=== PATIENT | female | born 1980 | race Hispanic/Latino ===

== ENCOUNTER 2021-10-04 14:12 | Emergency (ER) | payer MEDICAID, OTHER ==
[~2021-10-04] VITALS: Ht 157.5 cm; Wt 81.6 kg
[2021-10-04 14:47] LABS: BASOPHILS % (AUTO) 0.4 % (0.0-5.0); EOSINOPHILS % (AUTO) 2.2 % (0.0-8.0); LYMPHOCYTES % (AUTO) 29.1 % (21.0-51.0); MEAN CORPUSCULAR HEMOGLOBIN 23.9 pg (27.0-33.0); MEAN CORPUSCULAR HGB CONC 30.9 g/dL (32.0-36.0); MEAN CORPUSCULAR VOLUME 77.4 fL (79-99); MONOCYTES % (AUTO) 6.2 % (3.0-13.0); NEUTROPHILS % (AUTO) 61.5 % (40.0-77.0); PLATELET COUNT (AUTO) 217 K/uL (130-400); RED BLOOD CELL COUNT(AUTO) 2.97 MIL/uL (4.00-5.50); RED CELL DISTRIBUTION WIDTH 18.5 % (11.0-15.5); WHITE BLOOD COUNT (AUTO) 7.2 K/uL (4.8-10.8)
[2021-10-04 14:57] LABS: CREATININE 0.6 mg/dL (0.5-1.5); POTASSIUM 3.4 mmol/L (3.5-5.1)
[2021-10-04 15:02] LABS: ALBUMIN 3.5 g/dL (3.5-5.0); BILIRUBIN,TOTAL 0.3 mg/dL (0.2-1.0)
[2021-10-04 15:09] LABS: APPEARANCE,URINE Clear (CLEAR); BILIRUBIN,URINE Negative (NEGATIVE); COLOR,URINE Yellow (YELLOW); GLUCOSE, URINE (UA) Negative (NEGATIVE); KETONES,URINE Negative (NEGATIVE); LEUKOCYTE ESTERASE ,URINE Trace (NEGATIVE); NITRATE,URINE Positive (NEGATIVE); OCCULT BLOOD,URINE Large (NEGATIVE); PH,URINE 5.5 (5.0-8.0); PROTEIN,URINE Negative (NEGATIVE)
[2021-10-04 15:13] LABS: HCG,QUAL RESULT NEGATIVE (NEGATIVE)
[2021-10-04 15:19] LABS: BACTERIA,URINE Few /HPF (None Seen); RBC,URINE 26-50 /HPF (0-1); SQUAMOUS EPITHELIAL CELL,UR Few /HPF (0-2)
[2021-10-04] MEDS ORDERED: 0.9%NACL 1000ML 1,000 ML IV ONE (17:30)
[2021-10-04] MEDS ORDERED: LACT10SO9 PO (18:58)
[2021-10-04] MEDS ORDERED: MEDR10TA PO (18:58)
[2021-10-04] MEDS ORDERED: IRON-23 PO (18:58)
[2021-10-04 19:25] VITALS: BP 148/82
== END 2021-10-04 20:23 | disposition home or self-care (01) ==
LOC: EDH 14:12
DX: D25.9 Leiomyoma of uterus, unspecified (principal); O20.9 Hemorrhage in early pregnancy, unspecified; D64.9 Anemia, unspecified
CPT/HCPCS: 36415; 76856; 80053; 81001; 81025; 85025; 86850; 86900; 86901; 87077; 87088; 87186; 96360

== ENCOUNTER 2023-03-24 04:17 | Emergency (ER) | payer BC, MEDICAID ==
[~2023-03-24] VITALS: Ht 157.5 cm; Wt 80.7 kg
[~2023-03-24 04:17] MED LIST: IRON-23 PO; LACT10SO9 PO; MEDR10TA PO
[2023-03-24] MEDS ORDERED: ALPRAZOLAM 0.5 MG TABLET ONE (04:37)
[2023-03-24 04:39] LABS: BASOPHILS % (AUTO) 0.2 % (0.0-5.0); EOSINOPHILS % (AUTO) 1.9 % (0.0-8.0); HEMATOCRIT 39.5 % (36-48); LYMPHOCYTES % (AUTO) 31.1 % (21.0-51.0); MEAN CORPUSCULAR HEMOGLOBIN 30.5 pg (27.0-33.0); MEAN CORPUSCULAR HGB CONC 34.9 g/dL (32.0-36.0); MEAN CORPUSCULAR VOLUME 87.4 fL (79-99); MONOCYTES % (AUTO) 6.7 % (3.0-13.0); NEUTROPHILS % (AUTO) 59.7 % (40.0-77.0); PLATELET COUNT (AUTO) 191 K/uL (130-400); RED BLOOD CELL COUNT(AUTO) 4.52 MIL/uL (4.00-5.50); RED CELL DISTRIBUTION WIDTH 12.2 % (11.0-15.5); WHITE BLOOD COUNT (AUTO) 8.2 K/uL (4.8-10.8)
[2023-03-24 04:48] LABS: CREATININE 0.8 mg/dL (0.5-1.5)
[2023-03-24 04:55] LABS: ALBUMIN 4.3 g/dL (3.5-5.0); TOTAL PROTEIN, SERUM 7.8 g/dL (6.0-8.3)
[2023-03-24] MEDS ORDERED: LABETALOL 20MG VIAL IV ONE (05:00)
[2023-03-24] MEDS ORDERED: ONDANSETRON 4MG INJ IVP ONE (05:00)
[2023-03-24] MEDS ORDERED: ALPRAZOLAM 0.5 MG TABLET PO ONE (05:00)
[2023-03-24] MEDS ORDERED: POTASSIUM BICARB/CIT AC 25 MEQ TABLET.EFF PO ONE (06:00)
[2023-03-24 06:24] VITALS: BP 153/88
[2023-03-24] MEDS ORDERED: IPRATROPIUM/ALBUTEROL SULFATE 3 ML SOLUTION IH ONE ×2 (08:03→08:30)
[2023-03-24] MEDS ORDERED: LISI10TA24 PO (08:36)
[2023-03-24] MEDS ORDERED: ALBUHFA IH (08:36)
== END 2023-03-24 08:47 | disposition home or self-care (01) ==
LOC: EDH 04:17
DX: I10 Essential (primary) hypertension (principal); J98.01 Acute bronchospasm; F41.9 Anxiety disorder, unspecified; E87.6 Hypokalemia; E78.00 Pure hypercholesterolemia, unspecified; Z20.822 Contact with and (suspected) exposure to COVID-19; Z79.899 Other long term (current) drug therapy; Z98.890 Other specified postprocedural states
CPT/HCPCS: 99284; 96374; 71045; 87635; 84484 ×2; 80053; 85025; 85378; 87804 ×2; 36415; 93005; 94640; C9803; J2405